=== PATIENT | male | born 1965 | race Caucasian/White ===

== ENCOUNTER 2017-08-11 18:08 | Emergency (ER) | payer BC ==
--- NOTE | 2017-08-11 19:45 | EDM.PDOC ---
ED HPI GENERAL MEDICAL PROBLEM - General Chief Complaint: General Stated Complaint: HIGH BP Time Seen by Provider: 08/11/17 18:25 Source of Information: Reports: Patient History Limitations: Reports: No Limitations - History of Present Illness INITIAL COMMENTS - FREE TEXT/NARRATIVE: Patient is a 51 year old man with high blood pressure who has had high blood pressure at home. He smoked a cigarette on the way to work and it was even higher at work at 173/120 and he came to the ED. He was worried, felt hot and dizzy. No chest pain or shortness or breath or other complaints. Onset: Today Onset Date: 08/11/17 Onset Time: 16:00 Duration: Improving Location: Reports: Generalized Quality: Reports: Other (No other symptoms.) Severity: Mild Improves with: Reports: Medication Worsens with: Reports: Other (Cigarettes.) Context: Denies: Other (History of hypertension and smoking.) Associated Symptoms: Reports: Other (Dizzy.) - Related Data Allergies Allergy/AdvReac Type Severity Reaction Status Date / Time No Known Allergies Allergy Verified 08/11/17 18:14 Home Meds: Home Meds Carvedilol [Carvedilol] 25 mg PO BID 08/11/17 [History] Lisinopril [Lisinopril] 10 mg PO DAILY 08/11/17 [History] Past Medical History Cardiovascular History: Reports: Automatic Implantable Cardioverter Defibrillators, Hypertension Social & Family History - Family History Family Medical History: Noncontributory - Tobacco Use Smoking Status *Q: Current Every Day Smoker Years of Tobacco use: 20 Packs/Tins Daily: 0.5 - Caffeine Use Caffeine Use: Reports: Tea - Alcohol Use Days Per Week of Alcohol Use: 2 Number of Drinks Per Day: 2 Total Drinks Per Week: 4 - Recreational Drug Use Recreational Drug Use: No ED ROS GENERAL - Review of Systems Review Of Systems: See Below Constitutional: Reports: No Symptoms HEENT: Reports: No Symptoms Respiratory: Reports: No Symptoms Cardiovascular: Reports: No Symptoms Endocrine: Reports: No Symptoms GI/Abdominal: Reports: No Symptoms : Reports: No Symptoms Musculoskeletal: Reports: No Symptoms Skin: Reports: No Symptoms Neurological: Reports: No Symptoms Psychiatric: Reports: No Symptoms Hematologic/Lymphatic: Reports: No Symptoms Immunologic: Reports: No Symptoms ED EXAM, GENERAL - Physical Exam Exam: See Below Exam Limited By: No Limitations General Appearance: Alert, WD/WN, No Apparent Distress Eye Exam: Bilateral Eye: EOMI, Normal Fundi, Normal Inspection, PERRL Ears: Normal External Exam, Normal Canal, Hearing Grossly Normal, Normal TMs Ear Exam: Bilateral Ear: Auricle Normal, Canal Normal, TM normal Nose: Normal Inspection, Normal Mucosa, No Blood Throat/Mouth: Normal Inspection, Normal Lips, Normal Teeth, Normal Gums, Normal Oropharynx, Normal Voice, No Airway Compromise Head: Atraumatic, Normocephalic Neck: Normal Inspection, Supple, Non-Tender, Full Range of Motion Respiratory/Chest: No Respiratory Distress, Lungs Clear, Normal Breath Sounds, No Accessory Muscle Use, Chest Non-Tender Cardiovascular: Normal Peripheral Pulses, Regular Rate, Rhythm, No Edema, No Gallop, No JVD, No Murmur, No Rub GI/Abdominal: Normal Bowel Sounds, Soft, Non-Tender, No Organomegaly, No Distention, No Abnormal Bruit, No Mass Back Exam: Normal Inspection Extremities: Normal Inspection, Normal Range of Motion, Non-Tender, Normal Capillary Refill, No Pedal Edema Neurological: Alert, Oriented, CN II-XII Intact, Normal Cognition, Normal Gait, Normal Reflexes, No Motor/Sensory Deficits Psychiatric: Normal Affect, Normal Mood Skin Exam: Warm, Dry, Intact, Normal Color, No Rash Lymphatic: No Adenopathy Course - Vital Signs Text/Narrative:: Patient's blood pressure dropped nicely just relaxing. His labs were normal. He will increase his Lisinopril to 20 mg po q day and continue Carvedilol at the same dose. He will see his PCP next week. Last Recorded V/S: Last Vital Signs Temp 36.6 C 08/11/17 18:16 Pulse 76 08/11/17 19:00 Resp 16 08/11/17 19:00 BP 130/94 H 08/11/17 19:00 Pulse Ox 95 08/11/17 19:00 - Orders/Labs/Meds Labs: Laboratory Tests 08/11/17 08/11/17 Range/Units 18:55 18:55 WBC 7.8 (4.5-12.0) X10-3/uL RBC 4.80 (4.30-5.75) x10(6)uL Hgb 15.7 H (11.5-15.5) g/dL Hct 45.6 (30.0-51.3) % MCV 95.0 (80-96) fL MCH 32.7 (27.7-33.6) pg MCHC 34.4 (32.2-35.4) g/dL RDW 11.1 L (11.5-15.5) % Plt Count 204 (125-369) X10(3)uL MPV 8.8 (7.4-10.4) fL Neut % (Auto) 71.5 (46-82) % Lymph % (Auto) 20.0 (13-37) % Morgan % (Auto) 7.2 (4-12) % Eos % (Auto) 1 (1.0-5.0) % Baso % (Auto) 0 (0-2) % Neut # (Auto) 5.5 (1.6-8.3) # Lymph # (Auto) 1.6 (0.6-5.0) # Morgan # (Auto) 0.6 (0.0-1.3) # Eos # (Auto) 0.1 (0.0-0.8) # Baso # (Auto) 0.0 (0.0-0.2) # Sodium 134 L (135-145) mmol/L Potassium 3.9 (3.5-5.3) mmol/L Chloride 99 L (100-110) mmol/L Carbon Dioxide 25 (23-29) mmol/L BUN 12 (5-20) mg/dL Creatinine 0.7 (0.6-1.3) mg/dL Est Cr Clr Drug Dosing 128.91 mL/min Estimated GFR (MDRD) > 60 (>60) BUN/Creatinine Ratio 17.1 (9-20) Glucose 129 H (80-116) mg/dL Calcium 9.2 (8.6-10.2) mg/dL Total Bilirubin 1.3 (0.1-1.3) mg/dL AST 26 (5-27) IU/L ALT 28 H (14-26) IU/L Alkaline Phosphatase 86 (56-112) IU/L Total Protein 7.9 (6.0-8.0) g/dL Albumin 4.3 (3.5-5.2) g/dL Globulin 3.6 g/dL Albumin/Globulin Ratio 1.2 Departure - Departure Time of Disposition: 19:52 Disposition: Home, Self-Care 01 Condition: Good Clinical Impression: Hypertension - Discharge Information Referrals: PCP,None [Primary Care Provider] -
== END 2017-08-11 20:08 | disposition home or self-care (01) ==
LOC: FB.ED 18:08
DX: I10 Essential (primary) hypertension (principal); F17.210 Nicotine dependence, cigarettes, uncomplicated
CPT/HCPCS: 36415; 80053; 85025; 99283

== ENCOUNTER 2020-03-02 15:05 | Observation (INO) | payer OTHER, SELFPAY ==
--- NOTE | 2020-03-02 15:11 | EDM.PDOC ---
ED HPI GENERAL MEDICAL PROBLEM - General Stated Complaint: SEIZURE Time Seen by Provider: 03/02/20 15:08 Source of Information: Reports: Patient History Limitations: Reports: Altered Mental Status - History of Present Illness INITIAL COMMENTS - FREE TEXT/NARRATIVE: 54 yo with a witnessed generalized tonic clinic seizure while at work. He was brought in by an ambulance. Lasted a couple of minutes,no tongue biting or incontinence of sphincters. He has a h/o HTN, but endorses no h/o seizures. He does drink some alcohol,unable to quantify,last time being yesterday. No fever reported. - Related Data Allergies Allergy/AdvReac Type Severity Reaction Status Date / Time No Known Allergies Allergy Verified 08/11/17 18:14 Home Meds: Home Meds Lisinopril 10 mg PO DAILY 08/11/17 [History] carvediloL [Carvedilol] 25 mg PO BID 08/11/17 [History] Past Medical History Cardiovascular History: Reports: Automatic Implantable Cardioverter Defibrillators, Hypertension Social & Family History - Family History Family Medical History: Noncontributory - Caffeine Use Caffeine Use: Reports: Tea ED ROS GENERAL - Review of Systems Review Of Systems: Comprehensive ROS is negative, except as noted in HPI. ED EXAM, NEURO - Physical Exam Exam: See Below Exam Limited By: Altered Mental Status General Appearance: Alert, Lethargic Nose: Normal Inspection, Normal Mucosa, No Blood Throat/Mouth: Normal Inspection, Normal Lips, Normal Teeth, Normal Gums, Normal Oropharynx, Normal Voice, No Airway Compromise Head Exam: Atraumatic, Normocephalic Neck: Normal Inspection Respiratory/Chest: No Respiratory Distress, Lungs Clear Cardiovascular: Normal Peripheral Pulses, No JVD, No Murmur Neurological: Alert, CN II-XII Intact. No: Oriented x 3 Extremities: Normal Inspection Psychiatric: Flat Affect Skin Exam: Warm, Cool, Pallor EKG INTERPRETATION Rhythm: NSR Course - Orders/Labs/Meds Orders: Active Orders 24 hr Category Date Time Status EKG Documentation Completion [RC] ASDIRECTED Care 03/02/20 15:07 Active Head wo Cont [CT] Stat Exams 03/02/20 15:07 Taken Sodium Chloride 0.9% [Normal Saline] 1,000 ml Med 03/02/20 15:15 Active IV ASDIRECTED Sodium Chloride 0.9% [Saline Flush] Med 03/02/20 15:07 Active 10 ml FLUSH ASDIRECTED PRN Peripheral IV Insertion Adult [OM.PC] Routine Oth 03/02/20 15:06 Ordered EKG 12 Lead [EK] Routine Ther 03/02/20 15:06 Ordered Medication Orders Sodium Chloride (Normal Saline) 1,000 mls @ 150 mls/hr IV ASDIRECTED ALEXANDRA Last Admin: 03/02/20 16:33 Dose: 150 mls/hr Sodium Chloride (Saline Flush) 10 ml FLUSH ASDIRECTED PRN PRN Reason: Keep Vein Open Last Admin: 03/02/20 16:33 Dose: 10 ml Labs: Laboratory Tests 03/02/20 03/02/20 03/02/20 Range/Units 15:18 15:18 15:18 WBC 5.5 (4.5-12.0) X10-3/uL RBC 4.42 (4.30-5.75) x10(6)uL Hgb 15.2 (13.5-17.8) g/dL Hct 44.5 (30.0-51.3) % MCV 100.5 H (80-96) fL MCH 34.5 H (27.7-33.6) pg MCHC 34.3 (32.2-35.4) g/dL RDW 12.4 (11.5-15.5) % Plt Count 151 (125-369) X10(3)uL MPV 8.5 (7.4-10.4) fL Neut % (Auto) 55.3 (46-82) % Lymph % (Auto) 29.2 (13-37) % Thayer % (Auto) 13.6 H (4-12) % Eos % (Auto) 1 (1.0-5.0) % Baso % (Auto) 1 (0-2) % Neut # (Auto) 3.1 (1.6-8.3) # Lymph # (Auto) 1.6 (0.6-5.0) # Thayer # (Auto) 0.7 (0.0-1.3) # Eos # (Auto) 0.0 (0.0-0.8) # Baso # (Auto) 0.1 (0.0-0.2) # Sodium 139 (135-145) mmol/L Potassium 4.3 (3.5-5.3) mmol/L Chloride 102 (100-110) mmol/L Carbon Dioxide 16 L (21-32) mmol/L BUN 6 L (7-18) mg/dL Creatinine 1.1 (0.70-1.30) mg/dL Est Cr Clr Drug Dosing TNP Estimated GFR (MDRD) > 60 (>60) BUN/Creatinine Ratio 5.5 L (9-20) Glucose 158 H (80-116) mg/dL Calcium 8.7 (8.6-10.2) mg/dL Troponin I 7.8 (4.0-60.3) pg/mL Urine Opiates Screen (NEGATIVE) Ur Oxycodone Screen (NEGATIVE) Ur Propoxyphene Screen (NEGATIVE) Ur Barbituates Screen (NEGATIVE) Ur Tricyclics Screen (NEGATIVE) Ur Phencyclidine Scrn (NEGATIVE) Ur Amphetamine Screen (NEGATIVE) Urine MDMA Screen (NEGATIVE) U Benzodiazepines Scrn (NEGATIVE) U Cocaine Metab Screen (NEGATIVE) U Marijuana (THC) Screen (NEGATIVE) Ethyl Alcohol (<0.03) % 03/02/20 03/02/20 Range/Units 15:18 16:42 WBC (4.5-12.0) X10-3/uL RBC (4.30-5.75) x10(6)uL Hgb (13.5-17.8) g/dL Hct (30.0-51.3) % MCV (80-96) fL MCH (27.7-33.6) pg MCHC (32.2-35.4) g/dL RDW (11.5-15.5) % Plt Count (125-369) X10(3)uL MPV (7.4-10.4) fL Neut % (Auto) (46-82) % Lymph % (Auto) (13-37) % Thayer % (Auto) (4-12) % Eos % (Auto) (1.0-5.0) % Baso % (Auto) (0-2) % Neut # (Auto) (1.6-8.3) # Lymph # (Auto) (0.6-5.0) # Thayer # (Auto) (0.0-1.3) # Eos # (Auto) (0.0-0.8) # Baso # (Auto) (0.0-0.2) # Sodium (135-145) mmol/L Potassium (3.5-5.3) mmol/L Chloride (100-110) mmol/L Carbon Dioxide (21-32) mmol/L BUN (7-18) mg/dL Creatinine (0.70-1.30) mg/dL Est Cr Clr Drug Dosing Estimated GFR (MDRD) (>60) BUN/Creatinine Ratio (9-20) Glucose (80-116) mg/dL Calcium (8.6-10.2) mg/dL Troponin I (4.0-60.3) pg/mL Urine Opiates Screen Negative (NEGATIVE) Ur Oxycodone Screen Negative (NEGATIVE) Ur Propoxyphene Screen Negative (NEGATIVE) Ur Barbituates Screen Negative (NEGATIVE) Ur Tricyclics Screen Negative (NEGATIVE) Ur Phencyclidine Scrn Negative (NEGATIVE) Ur Amphetamine Screen Negative (NEGATIVE) Urine MDMA Screen Negative (NEGATIVE) U Benzodiazepines Scrn Negative (NEGATIVE) U Cocaine Metab Screen Negative (NEGATIVE) U Marijuana (THC) Screen Negative (NEGATIVE) Ethyl Alcohol < 0.03 (<0.03) % Meds: Medications Generic Name Dose Route Start Last Admin Trade Name Freq PRN Reason Stop Dose Admin Sodium Chloride 1,000 mls @ 150 mls/hr 03/02/20 15:15 03/02/20 16:33 Normal Saline IV 150 mls/hr ASDIRECTED ALEXANDRA Administration Sodium Chloride 10 ml 03/02/20 15:07 03/02/20 16:33 Saline Flush FLUSH 10 ml ASDIRECTED PRN Administration Keep Vein Open Departure - Departure Time of Disposition: 17:14 Disposition: Refer to Observation Condition: Good Clinical Impression: Hypertension, Seizure - Discharge Information Sepsis Event Note - Focused Exam Date Exam was Performed: 03/02/20 Time Exam was Performed: 17:13 - Problem List & Annotations (1) Seizure SNOMED Code(s): 18840248 Code(s): R56.9 - UNSPECIFIED CONVULSIONS Status: Acute Current Visit: No (2) Hypertension SNOMED Code(s): 48963989 Code(s): I10 - ESSENTIAL (PRIMARY) HYPERTENSION Status: Acute Current Visit: No Qualifiers: Hypertension type: essential hypertension Qualified Code(s): I10 - Essential (primary) hypertension (3) ETOH abuse SNOMED Code(s): 33693050 Code(s): F10.10 - ALCOHOL ABUSE, UNCOMPLICATED Status: Acute Current Visit: Yes (4) Dehydration SNOMED Code(s): 96240964 Code(s): E86.0 - DEHYDRATION Status: Acute Current Visit: Yes - Problem List Review Problem List Initiated/Reviewed/Updated: Yes - My Orders Last 24 Hours: My Active Orders 03/02/20 15:06 Peripheral IV Insertion Adult [OM.PC] Routine EKG 12 Lead [EK] Routine 03/02/20 15:07 EKG Documentation Completion [RC] ASDIRECTED Head wo Cont [CT] Stat Sodium Chloride 0.9% [Saline Flush] 10 ml FLUSH ASDIRECTED PRN 03/02/20 15:15 Sodium Chloride 0.9% [Normal Saline] 1,000 ml IV ASDIRECTED - Assessment/Plan Last 24 Hours: My Active Orders 03/02/20 15:06 Peripheral IV Insertion Adult [OM.PC] Routine EKG 12 Lead [EK] Routine 03/02/20 15:07 EKG Documentation Completion [RC] ASDIRECTED Head wo Cont [CT] Stat Sodium Chloride 0.9% [Saline Flush] 10 ml FLUSH ASDIRECTED PRN 03/02/20 15:15 Sodium Chloride 0.9% [Normal Saline] 1,000 ml IV ASDIRECTED Plan: CT is negative. He is weak,and dizzy,slightly postictal. I will keep him for observation. CIWA. Fluids.Seizure precautions
[2020-03-02] MEDS ORDERED: Sodium Chloride 0.9% 1,000 ML IV SCH (15:15)
[2020-03-02] MEDS: Sodium Chloride 0.9% 10 ML Syringe FLUSH PRN (16:33)
[2020-03-02] MEDS ORDERED: LORazepam 2 MG/ML SDV IM PRN (17:15)
[2020-03-02] MEDS ORDERED: LORazepam 2 MG/ML SDV IV PRN (17:25)
[2020-03-02] MEDS ORDERED: Folic Acid 50 MG/10 ML MDV IV SCH (17:30)
[2020-03-02] MEDS: Sodium Chloride 0.9% 1,000 ML IV SCH (18:00)
--- NOTE | 2020-03-02 18:34 | PCM.HP.2 ---
H&P History of Present Illness - General Date of Service: 03/02/20 Admit Problem/Dx: Admission Diagnosis/Problem Admission Diagnosis/Problem Seizure Source of Information: Patient, EMS Notes Reviewed - History of Present Illness Initial Comments - Free Text/Narative: 54 yo with a witnessed generalized tonic clinic seizure while at work. He was brought in by an ambulance. Lasted a couple of minutes, bite his tongue but no incontinence of sphincters. He has a h/o HTN, but endorses no h/o seizures. He does drink some alcohol, 3-4 beers a night, last time being yesterday. No fever reported. No chest pain, shortness of breath, cough or sinus symptoms. Some body aches. 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 Does not use gloves but does not handle any chemicals. His pacemaker/ICD was turned off as it was only pacing 1%, then let the battery go , states that it was years ago. CT head shows some atrophy, but no masses. EKG shows Left bundle branch block. - Related Data Allergies/Adverse Reactions: Allergies Allergy/AdvReac Type Severity Reaction Status Date / Time No Known Allergies Allergy Verified 08/11/17 18:14 Home Medications: Home Meds Lisinopril 10 mg PO BID 08/11/17 [History] carvediloL [Carvedilol] 25 mg PO BID 08/11/17 [History] amLODIPine [Norvasc] 5 mg PO DAILY 03/02/20 [History] Past Medical History HEENT History: Reports: Cataract Cardiovascular History: Reports: Automatic Implantable Cardioverter Defibrillators, Hypertension Musculoskeletal History: Reports: Other (See Below) Other Musculoskeletal History: traumatic foot injury in childhood Neurological History: Reports: Other (See Below) Other Neuro History: gets dizzy when he is sick and when blood pressure is elevated. - Past Surgical History HEENT Surgical History: Reports: Cataract Surgery Other Neurological Surgeries/Procedures: no history of seizures or testing. Social & Family History - Family History Family Medical History: Noncontributory - Caffeine Use Caffeine Use: Reports: Tea H&P Review of Systems - Review of Systems: Review Of Systems: Comprehensive ROS is negative, except as noted in HPI. Exam - Exam Exam: See Below - Exam General: Alert, Oriented, Cooperative HEENT: PERRLA, Conjunctiva Clear, EOMI, Mucosa Moist & Arjay, Posterior Pharynx Clear, TMs Clear, Glasses Neck: Supple. No: Lymphadenopathy Lungs: Clear to Auscultation, Normal Respiratory Effort Cardiovascular: Regular Rate, Regular Rhythm GI/Abdominal Exam: Normal Bowel Sounds, Soft, Non-Tender, No Distention (Male) Exam: Deferred Rectal (Males) Exam: Deferred Extremities: No Pedal Edema Peripheral Pulses: 2+: Radial (L), Radial (R) Neurological: Strength Equal Bilateral, Normal Tone, Sensation Intact Neuro Extensive - Mental Status: Memory Loss-Recent Events - Patient Data Lab Results Last 24 hrs: Laboratory Results - last 24 hr 03/02/20 03/02/20 03/02/20 Range/Units 15:18 15:18 15:18 WBC 5.5 (4.5-12.0) X10-3/uL RBC 4.42 (4.30-5.75) x10(6)uL Hgb 15.2 (13.5-17.8) g/dL Hct 44.5 (30.0-51.3) % MCV 100.5 H (80-96) fL MCH 34.5 H (27.7-33.6) pg MCHC 34.3 (32.2-35.4) g/dL RDW 12.4 (11.5-15.5) % Plt Count 151 (125-369) X10(3)uL MPV 8.5 (7.4-10.4) fL Neut % (Auto) 55.3 (46-82) % Lymph % (Auto) 29.2 (13-37) % Ritchie % (Auto) 13.6 H (4-12) % Eos % (Auto) 1 (1.0-5.0) % Baso % (Auto) 1 (0-2) % Neut # (Auto) 3.1 (1.6-8.3) # Lymph # (Auto) 1.6 (0.6-5.0) # Ritchie # (Auto) 0.7 (0.0-1.3) # Eos # (Auto) 0.0 (0.0-0.8) # Baso # (Auto) 0.1 (0.0-0.2) # Sodium 139 (135-145) mmol/L Potassium 4.3 (3.5-5.3) mmol/L Chloride 102 (100-110) mmol/L Carbon Dioxide 16 L (21-32) mmol/L BUN 6 L (7-18) mg/dL Creatinine 1.1 (0.70-1.30) mg/dL Est Cr Clr Drug Dosing TNP Estimated GFR (MDRD) > 60 (>60) BUN/Creatinine Ratio 5.5 L (9-20) Glucose 158 H (80-116) mg/dL Calcium 8.7 (8.6-10.2) mg/dL Troponin I 7.8 (4.0-60.3) pg/mL Urine Opiates Screen (NEGATIVE) Ur Oxycodone Screen (NEGATIVE) Ur Propoxyphene Screen (NEGATIVE) Ur Barbituates Screen (NEGATIVE) Ur Tricyclics Screen (NEGATIVE) Ur Phencyclidine Scrn (NEGATIVE) Ur Amphetamine Screen (NEGATIVE) Urine MDMA Screen (NEGATIVE) U Benzodiazepines Scrn (NEGATIVE) U Cocaine Metab Screen (NEGATIVE) U Marijuana (THC) Screen (NEGATIVE) Ethyl Alcohol (<0.03) % 03/02/20 03/02/20 Range/Units 15:18 16:42 WBC (4.5-12.0) X10-3/uL RBC (4.30-5.75) x10(6)uL Hgb (13.5-17.8) g/dL Hct (30.0-51.3) % MCV (80-96) fL MCH (27.7-33.6) pg MCHC (32.2-35.4) g/dL RDW (11.5-15.5) % Plt Count (125-369) X10(3)uL MPV (7.4-10.4) fL Neut % (Auto) (46-82) % Lymph % (Auto) (13-37) % Ritchie % (Auto) (4-12) % Eos % (Auto) (1.0-5.0) % Baso % (Auto) (0-2) % Neut # (Auto) (1.6-8.3) # Lymph # (Auto) (0.6-5.0) # Ritchie # (Auto) (0.0-1.3) # Eos # (Auto) (0.0-0.8) # Baso # (Auto) (0.0-0.2) # Sodium (135-145) mmol/L Potassium (3.5-5.3) mmol/L Chloride (100-110) mmol/L Carbon Dioxide (21-32) mmol/L BUN (7-18) mg/dL Creatinine (0.70-1.30) mg/dL Est Cr Clr Drug Dosing Estimated GFR (MDRD) (>60) BUN/Creatinine Ratio (9-20) Glucose (80-116) mg/dL Calcium (8.6-10.2) mg/dL Troponin I (4.0-60.3) pg/mL Urine Opiates Screen Negative (NEGATIVE) Ur Oxycodone Screen Negative (NEGATIVE) Ur Propoxyphene Screen Negative (NEGATIVE) Ur Barbituates Screen Negative (NEGATIVE) Ur Tricyclics Screen Negative (NEGATIVE) Ur Phencyclidine Scrn Negative (NEGATIVE) Ur Amphetamine Screen Negative (NEGATIVE) Urine MDMA Screen Negative (NEGATIVE) U Benzodiazepines Scrn Negative (NEGATIVE) U Cocaine Metab Screen Negative (NEGATIVE) U Marijuana (THC) Screen Negative (NEGATIVE) Ethyl Alcohol < 0.03 (<0.03) % Result Diagrams: 03/02/20 15:18 03/02/20 15:18 - Problem List (1) Seizure SNOMED Code(s): 16983043 ICD Code: R56.9 - UNSPECIFIED CONVULSIONS Status: Acute Current Visit: Yes (2) Dehydration SNOMED Code(s): 11845256 ICD Code: E86.0 - DEHYDRATION Status: Acute Current Visit: Yes (3) ETOH abuse SNOMED Code(s): 12177665 ICD Code: F10.10 - ALCOHOL ABUSE, UNCOMPLICATED Status: Acute Current Visit: Yes (4) Hypertension SNOMED Code(s): 15241804 ICD Code: I10 - ESSENTIAL (PRIMARY) HYPERTENSION Status: Acute Current Visit: Yes Qualifiers: Hypertension type: essential hypertension Qualified Code(s): I10 - Essential (primary) hypertension Problem List Initiated/Reviewed/Updated: Yes Orders Last 24hrs: Active Orders 24 hr Category Date Time Status Patient Status [ADT] Routine ADT 03/02/20 17:15 Active Bedrest Bedside Commode [RC] ASDIRECTED Care 03/02/20 17:15 Active CIWAA Assessment [RC] ASDIRECTED Care 03/02/20 17:15 Active Cardiac Monitoring [RC] .As Directed Care 03/02/20 17:15 Active EKG Documentation Completion [RC] ASDIRECTED Care 03/02/20 15:07 Active Intake and Output [RC] QSHIFT Care 03/02/20 17:16 Active Oxygen Therapy [RC] PRN Care 03/02/20 17:15 Active VTE/DVT Education [RC] Per Unit Routine Care 03/02/20 17:15 Active Vital Signs [RC] Q8H Care 03/02/20 17:15 Active Regular Diet [DIET] Diet 03/02/20 Breakfast Ordered Head wo Cont [CT] Stat Exams 03/02/20 15:07 Taken CBC WITH AUTO DIFF [HEME] AM Lab 03/03/20 05:11 Ordered COMPREHENSIVE METABOLIC PN,CMP [CHEM] AM Lab 03/03/20 05:11 Ordered Folic Acid Med 03/02/20 17:30 Active 1 mg IV DAILY LORazepam [Ativan] Med 03/02/20 17:25 Active See Protocol IV Q1H PRN Sodium Chloride 0.9% [Normal Saline] 1,000 ml Med 03/02/20 15:15 Active IV ASDIRECTED Sodium Chloride 0.9% [Normal Saline] 1,000 ml Med 03/02/20 17:30 Active IV ASDIRECTED Sodium Chloride 0.9% [Saline Flush] Med 03/02/20 15:07 Active 10 ml FLUSH ASDIRECTED PRN Thiamine [Vitamin B-1] 100 mg Med 03/03/20 09:00 Active Sodium Chloride 0.9% [Normal Saline] 100 ml IV DAILY amLODIPine [Norvasc] Med 03/03/20 09:00 Ordered 5 mg PO DAILY carvediloL [Coreg] Med 03/02/20 21:00 Pending 25 mg PO BID lisinopriL [Prinivil] Med 03/02/20 21:00 Pending 10 mg PO BID Peripheral IV Insertion Adult [OM.PC] Routine Oth 03/02/20 15:06 Ordered Seizure Precautions [OM.PC] Routine Oth 03/02/20 17:15 Ordered Resuscitation Status Routine Resus Stat 03/02/20 17:15 Ordered EKG 12 Lead [EK] Routine Ther 03/02/20 15:06 Ordered Medication Orders Amlodipine Besylate (Norvasc) 5 mg PO DAILY ALEXANDRA Carvedilol (Coreg) 25 mg PO BID ALEXANDRA Folic Acid (Folic Acid) 1 mg IV DAILY ALEXANDRA Sodium Chloride (Normal Saline) 1,000 mls @ 150 mls/hr IV ASDIRECTED ALEXANDRA Last Infusion: 03/02/20 17:00 Dose: 999 mls/hr Admin: 03/02/20 16:33 Dose: 150 mls/hr Thiamine HCl 100 mg/ Sodium (Chloride) 101 mls @ 202 mls/hr IV DAILY ALEXANDRA Sodium Chloride (Normal Saline) 1,000 mls @ 125 mls/hr IV ASDIRECTED ALEXANDRA Lisinopril (Prinivil) 10 mg PO BID ALEXANDRA Lorazepam (Ativan) 0 mg IV Q1H PRN; Protocol PRN Reason: Withdrawal Symptoms Sodium Chloride (Saline Flush) 10 ml FLUSH ASDIRECTED PRN PRN Reason: Keep Vein Open Last Admin: 03/02/20 16:33 Dose: 10 ml Assessment/Plan Comment:: 1. Admit for ICU observation first episode of seizure, cerebral atrophy on CT head. 2. Seizure precautions, CIWAA protocol. 3. Continue home medications, will use patient's medications. 4. Cardiac monitoring. 5. Regular diet. 6. FULL CODE. - Mortality Measure Prognosis:: Good
[2020-03-02] MEDS: Carvedilol 25 MG Tab *PTOM PO SCH (20:48)
[2020-03-02] MEDS: Lisinopril 10 MG Tab *PTOM PO SCH (20:48)
[2020-03-03] MEDS: Sodium Chloride 0.9% 1,000 ML IV SCH (02:05)
[2020-03-03] MEDS: Carvedilol 25 MG Tab *PTOM PO SCH (08:44)
[2020-03-03] MEDS: Lisinopril 10 MG Tab *PTOM PO SCH (08:46)
[2020-03-03] MEDS ORDERED: amLODIPine 5 MG Tab *PTOM PO SCH (09:00)
[2020-03-03] MEDS ORDERED: Folic Acid 1 MG Tab PO SCH (09:00)
[2020-03-03] MEDS ORDERED: Thiamine 100 MG in Sodium Chloride 0.9% 100 ML IV SCH (09:00)
[2020-03-03] MEDS ORDERED: Lisinopril 10 MG Tab PO SCH (09:00)
[2020-03-03] MEDS ORDERED: Thiamine 100 MG Tab PO SCH (09:00)
[2020-03-03] MEDS: Sodium Chloride 0.9% 10 ML Syringe FLUSH PRN (10:09)
--- NOTE | 2020-03-03 14:26 | PCM.DCSUM1 ---
Discharge Summary - Hospital Course HPI Initial Comments: 54 yo with a witnessed generalized tonic clinic seizure while at work. He was brought in by an ambulance. Lasted a couple of minutes, bite his tongue but no incontinence of sphincters. He has a h/o HTN, but endorses no h/o seizures. He does drink some alcohol, 3-4 beers a night, last time being yesterday. No fever reported. No chest pain, shortness of breath, cough or sinus symptoms. Some body aches. 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 Does not use gloves but does not handle any chemicals. His pacemaker/ICD was turned off as it was only pacing 1%, then let the battery go , states that it was years ago. CT head shows some atrophy, but no masses. EKG shows Left bundle branch block. Diagnosis: Stroke: No - Discharge Data Discharge Date: 03/03/20 Discharge Disposition: Home, Self-Care 01 Condition: Good - Referral to Home Health Primary Care Physician: Cinthya Chaidez NP - Discharge Diagnosis/Problem(s) (1) Seizure SNOMED Code(s): 34088833 ICD Code: R56.9 - UNSPECIFIED CONVULSIONS Status: Acute Current Visit: Yes Problem Details: 1st episode (2) Dehydration SNOMED Code(s): 50745850 ICD Code: E86.0 - DEHYDRATION Status: Resolved Current Visit: Yes (3) ETOH abuse SNOMED Code(s): 81126597 ICD Code: F10.10 - ALCOHOL ABUSE, UNCOMPLICATED Status: Acute Current Visit: Yes (4) Hypertension SNOMED Code(s): 40291850 ICD Code: I10 - ESSENTIAL (PRIMARY) HYPERTENSION Status: Chronic Current Visit: Yes Qualifiers: Hypertension type: essential hypertension Qualified Code(s): I10 - Essential (primary) hypertension - Patient Summary/Data Hospital Course: Jomar was postictal in ER, was admitted for observation for 1st episode of seizure. His blood pressure was elevated, resumed his home medications and improved this morning after his morning medications. His CIWAA score was 2 at highest, and has not required any Ativan. No seizure during hospital stay. Will be discharged home, appt with Cinthya Chaidez for to make sure he is doing well. He will not need to start any antiepileptic medications at this time as it was first episode. - Patient Instructions Diet: Heart Healthy Diet Activity: As Tolerated Driving: Do Not Drive Showering/Bathing: May Shower Other/Special Instructions: Follow up with Cinthya Chaidez [facility] on March 05 at 2pm to make sure you are doing well and clear you for work. - Discharge Plan *PRESCRIPTION DRUG MONITORING PROGRAM REVIEWED*: Not Applicable *COPY OF PRESCRIPTION DRUG MONITORING REPORT IN PATIENT BLANCHE: Not Applicable Home Medications: Home Meds Lisinopril 10 mg PO BID 08/11/17 [History] carvediloL [Carvedilol] 25 mg PO BID 08/11/17 [History] amLODIPine [Norvasc] 5 mg PO DAILY 03/02/20 [History] Oxygen Therapy Mode: Room Air Patient Handouts: Alcohol Use Disorder, Smoking Tobacco Information, Adult, Cardiomyopathy, Adult, Fall Prevention in Hospitals, Adult, Seizure, Adult, Easy -to-Read, Venous Thromboembolism Prevention Forms: ED Department Discharge Referrals: Cinthya Chaidez, NITROGLYCERIN SUPERVISOR [Primary Care Provider] - - Discharge Summary/Plan Comment DC Time >30 min.: No - General Info Date of Service: 03/03/20 Admission Dx/Problem (Free Text: Some muscle aches but no seizure overnight, blood pressure controlled after morning medications. - Patient Data Vitals - Most Recent: Last Vital Signs Temp 98.7 F 03/03/20 12:45 Pulse 72 03/03/20 12:45 Resp 18 03/03/20 12:45 BP 145/87 H 03/03/20 12:45 Pulse Ox 98 03/03/20 12:45 Weight - Most Recent: 182 lb 6 oz I&O - Last 24 hours: Intake & Output 03/02/20 03/03/20 03/03/20 22:59 06:59 14:59 Intake Total 2216 Output Total 400 1 Balance 1816 -1 Lab Results - Last 24 hrs: Laboratory Results - last 24 hr 03/02/20 03/02/20 03/02/20 Range/Units 15:18 15:18 15:18 WBC 5.5 (4.5-12.0) X10-3/uL RBC 4.42 (4.30-5.75) x10(6)uL Hgb 15.2 (13.5-17.8) g/dL Hct 44.5 (30.0-51.3) % MCV 100.5 H (80-96) fL MCH 34.5 H (27.7-33.6) pg MCHC 34.3 (32.2-35.4) g/dL RDW 12.4 (11.5-15.5) % Plt Count 151 (125-369) X10(3)uL MPV 8.5 (7.4-10.4) fL Neut % (Auto) 55.3 (46-82) % Lymph % (Auto) 29.2 (13-37) % [place] % (Auto) 13.6 H (4-12) % Eos % (Auto) 1 (1.0-5.0) % Baso % (Auto) 1 (0-2) % Neut # (Auto) 3.1 (1.6-8.3) # Lymph # (Auto) 1.6 (0.6-5.0) # [place] # (Auto) 0.7 (0.0-1.3) # Eos # (Auto) 0.0 (0.0-0.8) # Baso # (Auto) 0.1 (0.0-0.2) # Sodium 139 (135-145) mmol/L Potassium 4.3 (3.5-5.3) mmol/L Chloride 102 (100-110) mmol/L Carbon Dioxide 16 L (21-32) mmol/L BUN 6 L (7-18) mg/dL Creatinine 1.1 (0.70-1.30) mg/dL Est Cr Clr Drug Dosing TNP Estimated GFR (MDRD) > 60 (>60) BUN/Creatinine Ratio 5.5 L (9-20) Glucose 158 H (80-116) mg/dL Calcium 8.7 (8.6-10.2) mg/dL Total Bilirubin (0.1-1.3) mg/dL AST (5-25) IU/L ALT (12-36) U/L Alkaline Phosphatase (56-112) IU/L Troponin I 7.8 (4.0-60.3) pg/mL Total Protein (6.0-8.0) g/dL Albumin (3.5-5.2) g/dL Globulin g/dL Albumin/Globulin Ratio Urine Opiates Screen (NEGATIVE) Ur Oxycodone Screen (NEGATIVE) Ur Propoxyphene Screen (NEGATIVE) Ur Barbituates Screen (NEGATIVE) Ur Tricyclics Screen (NEGATIVE) Ur Phencyclidine Scrn (NEGATIVE) Ur Amphetamine Screen (NEGATIVE) Urine MDMA Screen (NEGATIVE) U Benzodiazepines Scrn (NEGATIVE) U Cocaine Metab Screen (NEGATIVE) U Marijuana (THC) Screen (NEGATIVE) Ethyl Alcohol (<0.03) % 03/02/20 03/02/20 03/03/20 Range/Units 15:18 16:42 06:05 WBC 6.7 (4.5-12.0) X10-3/uL RBC 4.08 L (4.30-5.75) x10(6)uL Hgb 13.5 (13.5-17.8) g/dL Hct 40.5 (30.0-51.3) % MCV 99.2 H (80-96) fL MCH 33.0 (27.7-33.6) pg MCHC 33.3 (32.2-35.4) g/dL RDW 12.3 (11.5-15.5) % Plt Count 111 L (125-369) X10(3)uL MPV 8.7 (7.4-10.4) fL Neut % (Auto) 70.1 (46-82) % Lymph % (Auto) 15.5 (13-37) % [place] % (Auto) 12.6 H (4-12) % Eos % (Auto) 1 (1.0-5.0) % Baso % (Auto) 1 (0-2) % Neut # (Auto) 4.8 (1.6-8.3) # Lymph # (Auto) 1.0 (0.6-5.0) # [place] # (Auto) 0.8 (0.0-1.3) # Eos # (Auto) 0.0 (0.0-0.8) # Baso # (Auto) 0.1 (0.0-0.2) # Sodium (135-145) mmol/L Potassium (3.5-5.3) mmol/L Chloride (100-110) mmol/L Carbon Dioxide (21-32) mmol/L BUN (7-18) mg/dL Creatinine (0.70-1.30) mg/dL Est Cr Clr Drug Dosing Estimated GFR (MDRD) (>60) BUN/Creatinine Ratio (9-20) Glucose (80-116) mg/dL Calcium (8.6-10.2) mg/dL Total Bilirubin (0.1-1.3) mg/dL AST (5-25) IU/L ALT (12-36) U/L Alkaline Phosphatase (56-112) IU/L Troponin I (4.0-60.3) pg/mL Total Protein (6.0-8.0) g/dL Albumin (3.5-5.2) g/dL Globulin g/dL Albumin/Globulin Ratio Urine Opiates Screen Negative (NEGATIVE) Ur Oxycodone Screen Negative (NEGATIVE) Ur Propoxyphene Screen Negative (NEGATIVE) Ur Barbituates Screen Negative (NEGATIVE) Ur Tricyclics Screen Negative (NEGATIVE) Ur Phencyclidine Scrn Negative (NEGATIVE) Ur Amphetamine Screen Negative (NEGATIVE) Urine MDMA Screen Negative (NEGATIVE) U Benzodiazepines Scrn Negative (NEGATIVE) U Cocaine Metab Screen Negative (NEGATIVE) U Marijuana (THC) Screen Negative (NEGATIVE) Ethyl Alcohol < 0.03 (<0.03) % 03/03/20 Range/Units 06:05 WBC (4.5-12.0) X10-3/uL RBC (4.30-5.75) x10(6)uL Hgb (13.5-17.8) g/dL Hct (30.0-51.3) % MCV (80-96) fL MCH (27.7-33.6) pg MCHC (32.2-35.4) g/dL RDW (11.5-15.5) % Plt Count (125-369) X10(3)uL MPV (7.4-10.4) fL Neut % (Auto) (46-82) % Lymph % (Auto) (13-37) % [place] % (Auto) (4-12) % Eos % (Auto) (1.0-5.0) % Baso % (Auto) (0-2) % Neut # (Auto) (1.6-8.3) # Lymph # (Auto) (0.6-5.0) # [place] # (Auto) (0.0-1.3) # Eos # (Auto) (0.0-0.8) # Baso # (Auto) (0.0-0.2) # Sodium 139 (135-145) mmol/L Potassium 3.7 (3.5-5.3) mmol/L Chloride 106 (100-110) mmol/L Carbon Dioxide 24 (21-32) mmol/L BUN 7 (7-18) mg/dL Creatinine 0.8 (0.70-1.30) mg/dL Est Cr Clr Drug Dosing 108.99 Estimated GFR (MDRD) > 60 (>60) BUN/Creatinine Ratio 8.8 L (9-20) Glucose 89 (80-116) mg/dL Calcium 8.1 L (8.6-10.2) mg/dL Total Bilirubin 1.3 (0.1-1.3) mg/dL AST 60 H (5-25) IU/L ALT 98 H (12-36) U/L Alkaline Phosphatase 97 (56-112) IU/L Troponin I (4.0-60.3) pg/mL Total Protein 6.9 (6.0-8.0) g/dL Albumin 2.8 L (3.5-5.2) g/dL Globulin 4.1 g/dL Albumin/Globulin Ratio 0.7 Urine Opiates Screen (NEGATIVE) Ur Oxycodone Screen (NEGATIVE) Ur Propoxyphene Screen (NEGATIVE) Ur Barbituates Screen (NEGATIVE) Ur Tricyclics Screen (NEGATIVE) Ur Phencyclidine Scrn (NEGATIVE) Ur Amphetamine Screen (NEGATIVE) Urine MDMA Screen (NEGATIVE) U Benzodiazepines Scrn (NEGATIVE) U Cocaine Metab Screen (NEGATIVE) U Marijuana (THC) Screen (NEGATIVE) Ethyl Alcohol (<0.03) % Med Orders - Current: Current Medications Amlodipine Besylate (Norvasc) 5 mg PO DAILY [facility] Last Admin: 03/03/20 08:46 Dose: 5 mg Carvedilol (Coreg) 25 mg PO BID [facility] Last Admin: 03/03/20 08:44 Dose: 25 mg Folic Acid (Folic Acid) 1 mg PO DAILY [facility] Last Admin: 03/03/20 08:45 Dose: 1 mg Sodium Chloride (Normal Saline) 1,000 mls @ 150 mls/hr IV ASDIRECTED [facility] Last Infusion: 03/02/20 17:00 Dose: 999 mls/hr Sodium Chloride (Normal Saline) 1,000 mls @ 125 mls/hr IV ASDIRECTED [facility] Last Admin: 03/03/20 02:05 Dose: 125 mls/hr Lisinopril (Prinivil) 10 mg PO BID [facility] Last Admin: 03/03/20 08:46 Dose: 10 mg Lorazepam (Ativan) 0 mg IV Q1H PRN; Protocol PRN Reason: Withdrawal Symptoms Sodium Chloride (Saline Flush) 10 ml FLUSH ASDIRECTED PRN PRN Reason: Keep Vein Open Last Admin: 03/03/20 10:09 Dose: 10 ml Thiamine HCl (Vitamin B-1) 100 mg PO DAILY [facility] Last Admin: 03/03/20 08:47 Dose: 100 mg Discontinued Medications Folic Acid (Folic Acid) 1 mg IV DAILY [facility] Last Admin: 03/02/20 18:53 Dose: 1 mg Thiamine HCl 100 mg/ Sodium (Chloride) 101 mls @ 202 mls/hr IV DAILY [facility] Lisinopril (Prinivil) 10 mg PO DAILY [facility] Lorazepam (Ativan) 1 mg IM Q4H PRN PRN Reason: Withdrawal Symptoms - Exam General: Reports: Alert, Oriented, Cooperative, No Acute Distress Lungs: Reports: Clear to Auscultation, Normal Respiratory Effort Cardiovascular: Reports: Regular Rate, Regular Rhythm GI/Abdominal Exam: Normal Bowel Sounds, Soft, Non-Tender, No Distention Extremities: No Pedal Edema
== END 2020-03-03 15:00 | disposition home or self-care (01) ==
LOC: FB.ED 15:05 → FB.ICU 17:15
PROVIDERS: ADMIT Family Medicine; ATTEND Family Medicine
DX: R56.9 Unspecified convulsions (principal); E86.0 Dehydration; F10.10 Alcohol abuse, uncomplicated; I10 Essential (primary) hypertension; Z79.899 Other long term (current) drug therapy; Z95.0 Presence of cardiac pacemaker; Y90.0 Blood alcohol level of less than 20 mg/100 ml
CPT/HCPCS: 36415; 70450; 80048; 80053; 80305; 80307; 84484; 85025; 93005; 96360; 99285; A9270; J7030; 96361; 96374; 99282; G0378; J3490

== ENCOUNTER 2021-01-24 21:41 | Emergency (ER) | payer MEDICAID, OTHER ==
[2021-01-24] MEDS: levETIRAcetam 500 MG Tab PO ONE (22:12)
--- NOTE | 2021-01-24 22:19 | EDM.PDOC ---
ED HPI GENERAL MEDICAL PROBLEM - General Chief Complaint: General Stated Complaint: SEIZURES Time Seen by Provider: 01/24/21 21:45 Source of Information: Reports: Patient History Limitations: Reports: No Limitations - History of Present Illness INITIAL COMMENTS - FREE TEXT/NARRATIVE: Patient presented to the ED because of 2 seizure episodes which happened at 2099 and 2109. The seizure was described as generalized body jerking. No post ictal confusion or headache. According to the patient was drinking all day. Bilateral Upper Arm Pain Score (Numeric/FACES): 5 - Related Data Allergies Allergy/AdvReac Type Severity Reaction Status Date / Time No Known Allergies Allergy Verified 01/24/21 21:54 Home Meds: Home Meds Lisinopril 10 mg PO BID 08/11/17 [History] carvediloL [Carvedilol] 25 mg PO BID 08/11/17 [History] amLODIPine [Norvasc] 5 mg PO DAILY 03/02/20 [History] Past Medical History HEENT History: Reports: Cataract Cardiovascular History: Reports: Automatic Implantable Cardioverter Defi brillators, Cardiomyopathy, Hypertension, Pacemaker Respiratory History: Reports: Bronchitis, Recurrent, Other (See Below) Other Respiratory History: PT HAS A INHALER AND USES IT PRN VOICED BY PT. Gastrointestinal History: Reports: GERD Genitourinary History: Reports: Other (See Below) Other Genitourinary History: HARD TO START STREAM IN AM AT TIMES. Musculoskeletal History: Reports: Other (See Below) Other Musculoskeletal History: traumatic foot injury in childhood Neurological History: Reports: Seizure, Other (See Below) Other Neuro History: gets dizzy when he is sick and when blood pressure is elevated., small vessels in brain - Infectious Disease History Infectious Disease History: Reports: Chicken Pox, Measles, Mumps - Past Surgical History HEENT Surgical History: Reports: Cataract Surgery Cardiovascular Surgical History: Reports: Other (See Below) Other Cardiovascular Surgeries/Procedures: WIRE FOR PACEMAKER PLACEMENT Respiratory Surgical History: Reports: None GI Surgical History: Reports: Hernia, Inguinal, Other (See Below) Other GI Surgeries/Procedures: LEFT SIDE Male Surgical History: Reports: None Musculoskeletal Surgical History: Reports: Other (See Below) Other Musculoskeletal Surgeries/Procedures:: LEFT ANKLE HAS A SCREW IN IT X3 SURGERIES. Social & Family History - Family History Family Medical History: No Pertinent Family History - Tobacco Use Tobacco Use Status *Q: Current Every Day Tobacco User Years of Tobacco use: 40 Packs/Tins Daily: 0.5 - Caffeine Use Caffeine Use: Reports: Coffee, Soda - Alcohol Use Days Per Week of Alcohol Use: 7 Number of Drinks Per Day: 6 Total Drinks Per Week: 42 - Recreational Drug Use Recreational Drug Use: No ED ROS GENERAL - Review of Systems Review Of Systems: See Below Constitutional: Reports: No Symptoms HEENT: Reports: No Symptoms Respiratory: Reports: No Symptoms Cardiovascular: Reports: No Symptoms Endocrine: Reports: No Symptoms GI/Abdominal: Reports: No Symptoms : Reports: No Symptoms Musculoskeletal: Reports: No Symptoms Skin: Reports: No Symptoms Neurological: Reports: No Symptoms Psychiatric: Reports: No Symptoms Hematologic/Lymphatic: Reports: No Symptoms Immunologic: Reports: No Symptoms ED EXAM, GENERAL - Physical Exam Exam: See Below Exam Limited By: No Limitations General Appearance: Alert, No Apparent Distress Ears: Normal External Exam, Normal Canal Nose: Normal Inspection, Normal Mucosa, No Blood Throat/Mouth: Normal Inspection, Normal Teeth Head: Atraumatic, Normocephalic Neck: Normal Inspection, Supple, Non-Tender, Full Range of Motion Respiratory/Chest: No Respiratory Distress, Lungs Clear, Normal Breath Sounds, No Accessory Muscle Use, Chest Non-Tender Cardiovascular: Normal Peripheral Pulses, Regular Rate, Rhythm GI/Abdominal: Normal Bowel Sounds, Soft, Non-Tender, No Organomegaly Back Exam: Normal Inspection, Full Range of Motion Extremities: Normal Inspection, Normal Range of Motion Course - Vital Signs Text/Narrative:: I didn't have the chance to explain the lab result to the patient. because he went AMA due to [facility] question I asked if he was drinking alcohol or not. He said I don't wanna talk about it anymore, I just want to go home and left with his . Keppra 2000 mg po x1 Last Recorded V/S: Last Vital Signs Temp 37.1 C 01/24/21 21:41 Pulse 90 01/24/21 21:41 Resp 18 01/24/21 21:41 BP 130/94 H 01/24/21 21:41 Pulse Ox 96 01/24/21 21:41 - Orders/Labs/Meds Orders: Active Orders 24 hr Category Date Time Status LEVETIRACETAM (KEPPRA), S Stat Lab 01/24/21 22:05 Received Labs: Laboratory Tests 01/24/21 01/24/21 01/24/21 Range/Units 22:05 22:05 22:05 WBC 5.0 (3.2-10.1) x10-3/uL RBC 4.01 (3.90-5.90) x10(6)uL Hgb 14.4 (12.9-17.7) g/dL Hct 41.2 (38.3-50.1) % MCV 102.8 H (80.8-98.7) fL MCH 35.8 H (27.0-33.3) pg MCHC 34.8 (28.7-35.3) g/dL RDW 12.2 L (12.4-15.0) % Plt Count 188 (117-477) x10(3)uL MPV 8.6 (6.7-11.0) fL Neut % (Auto) 53.2 (40.3-71.8) % Lymph % (Auto) 34.3 (15.8-45.3) % [place] % (Auto) 10.6 (5.5-15.2) % Eos % (Auto) 1.4 (0.1-6.8) % Baso % (Auto) 0.5 (0.3-3.8) % Neut # (Auto) 2.7 (1.7-6.9) x10-3/uL Lymph # (Auto) 1.7 (0.5-4.5) x10-3/uL [place] # (Auto) 0.5 (0.0-1.2) x10-3/uL Eos # (Auto) 0.1 (0.0-0.6) x10-3/uL Baso # (Auto) 0.0 (0.0-0.3) x10-3/uL Sodium 141 (135-145) mmol/L Potassium 3.9 (3.5-5.3) mmol/L Chloride 104 (100-110) mmol/L Carbon Dioxide 23 (21-32) mmol/L BUN 9 (7-18) mg/dL Creatinine 0.9 (0.70-1.30) mg/dL Est Cr Clr Drug Dosing 95.76 mL/min Estimated GFR (MDRD) > 60 (>60) BUN/Creatinine Ratio 10.0 (9-20) Glucose 117 H (80-116) mg/dL Calcium 7.0 L (8.6-10.2) mg/dL Total Bilirubin 0.2 (0.1-1.3) mg/dL AST 42 H D (5-25) IU/L ALT 44 H D (12-36) U/L Alkaline Phosphatase 162 H (56-112) IU/L Total Protein 7.4 (6.0-8.0) g/dL Albumin 3.1 L (3.5-5.2) g/dL Globulin 4.3 g/dL Albumin/Globulin Ratio 0.7 Ethyl Alcohol 0.42 H* (<0.03) % Meds: Medications Discontinued Medications Generic Name Dose Route Start Last Admin Trade Name Freq PRN Reason Stop Dose Admin Levetiracetam 2,000 mg 01/24/21 21:56 01/24/21 22:12 Levetiracetam 500 Mg Tab PO 01/24/21 21:57 2,000 mg ONETIME ONE Administration Departure - Departure Time of Disposition: 20:30 Disposition: Against Medical Advice 07 Condition: Good Clinical Impression: Seizure, Alcohol intoxication - Discharge Information Instructions: Seizure, Adult, [id number] Referrals: Cinthya Chaidez NP [Primary Care Provider] - Forms: ED Department Discharge Additional Instructions: Please read discharge instructions on seizure Quit drinking alcohol Take your qabapentin as prescribed Follow up as needed Sepsis Event Note (ED) - Evaluation Sepsis Screening Result: No Definite Risk - Focused Exam Vital Signs: Vital Signs Temp Pulse Resp BP Pulse Ox 01/24/21 21:41 37.1 C 90 18 130/94 H 96 - My Orders Last 24 Hours: My Active Orders 01/24/21 22:05 LEVETIRACETAM (KEPPRA), S Stat - Assessment/Plan Last 24 Hours: My Active Orders 01/24/21 22:05 LEVETIRACETAM (KEPPRA), S Stat
== END 2021-01-24 22:20 | disposition left against medical advice (07) ==
LOC: FB.ED 21:41
DX: R56.9 Unspecified convulsions (principal); F10.129 Alcohol abuse with intoxication, unspecified; Y90.8 Blood alcohol level of 240 mg/100 ml or more; I10 Essential (primary) hypertension; Z72.0 Tobacco use; Z79.899 Other long term (current) drug therapy
CPT/HCPCS: 36415; 80053; 80177; 80307; 85025; 99284; A9270

== ENCOUNTER 2023-06-13 21:24 | Emergency (ER) | payer OTHER ==
[2023-06-13 22:38] LABS: APPEARANCE,URINE CLEAR (CLEAR); BACTERIA,URINE RARE (NS); BILIRUBIN,URINE NEGATIVE (NEGATIVE); COLOR,URINE YELLOW (YELLOW); GLUCOSE,URINE NORMAL (NORMAL); KETONES,URINE NEGATIVE (NEGATIVE); LEUKOCYTE ESTERASE,URINE NEGATIVE (NEGATIVE); NITRITE,URINE NEGATIVE (NEGATIVE); OCCULT BLOOD,URINE NEGATIVE (NEGATIVE); PROTEIN,URINE NEGATIVE (NEGATIVE); RBC,URINE 0-5 (0-5); SQUAMOUS EPITHELIAL CELLS,UR RARE (NS,R,O); UROBILINOGEN,URINE NORMAL (NEGATIVE); WBC,URINE 0-5 (0-5)
[2023-06-13 22:40] LABS: AMPHETAMINES SCREEN, URINE NEGATIVE (NEGATIVE); BARBITURATE SCREEN,URINE NEGATIVE (NEGATIVE); BENZODIAZEPINES SCREEN,URINE NEGATIVE (NEGATIVE); BUPRENORPHINE SCREEN,URINE NEGATIVE (NEGATIVE); METHADONE SCREEN, URINE NEGATIVE (NEGATIVE); METHAMPHETAMINE SCREEN, URINE NEGATIVE (NEGATIVE); OXYCODONE SCREEN,URINE NEGATIVE (NEGATIVE); PROPOXYPHENE SCREEN,URINE NEGATIVE (NEGATIVE); THC SCREEN,URINE NEGATIVE (NEGATIVE)
== END 2023-06-13 23:20 | disposition home or self-care (01) ==
LOC: FB.ED 21:24
DX: N32.0 Bladder-neck obstruction (principal); K21.9 Gastro-esophageal reflux disease without esophagitis; I10 Essential (primary) hypertension; F17.210 Nicotine dependence, cigarettes, uncomplicated; Z95.0 Presence of cardiac pacemaker
CPT/HCPCS: 80307; 81001; 99283; C1758

== ENCOUNTER 2023-06-17 15:36 | Emergency (ER) | payer OTHER ==
[2023-06-17] MEDS ORDERED: Promethazine 25 MG in Sodium Chloride 0.9% 50 ML IV ONE (15:46)
[2023-06-17] MEDS ORDERED: Lidocaine 2% HCl 6 ML Jel ONE ×3 (16:27→16:30)
[2023-06-17] MEDS ORDERED: Tamsulosin 0.4 MG Cap.ER PO ONE ×2 (17:43→17:59)
== END 2023-06-17 18:01 | disposition home or self-care (01) ==
LOC: FB.ED 15:36
DX: R30.0 Dysuria (principal); N40.0 Benign prostatic hyperplasia without lower urinary tract symptoms; F17.200 Nicotine dependence, unspecified, uncomplicated; Z95.0 Presence of cardiac pacemaker; Z79.899 Other long term (current) drug therapy
CPT/HCPCS: 51702; 99283; A9270-GY

== ENCOUNTER 2023-08-28 06:42 | Day surgery (SDC) | payer OTHER ==
[2023-08-28] MEDS ORDERED: Propofol 200 MG/20 ML SDV IV ONE (06:43)
[2023-08-28] MEDS ORDERED: Glycopyrrolate 0.2 MG/ML 5 ML MDV IV ONE (06:43)
[2023-08-28] MEDS ORDERED: Lactated Ringers 1,000 ML IV SCH (07:00)
[2023-08-28] MEDS ORDERED: Sodium Chloride 0.9% 10 ML Syringe FLUSH PRN (07:00)
[2023-08-28] MEDS ORDERED: Simethicone Drops 40 MG/0.6 ML 30 ML Bottle ONE (07:53)
== END 2023-08-28 09:28 | disposition home or self-care (01) ==
LOC: FB.SDS 06:42
PROVIDERS: ATTEND Surgery
DX: D12.0 Benign neoplasm of cecum (principal); D12.6 Benign neoplasm of colon, unspecified; K57.30 Diverticulosis of large intestine without perforation or abscess without bleeding; J45.909 Unspecified asthma, uncomplicated; I10 Essential (primary) hypertension; F10.10 Alcohol abuse, uncomplicated; F17.210 Nicotine dependence, cigarettes, uncomplicated; Z83.710 Family history of adenomatous and serrated polyps; Z79.899 Other long term (current) drug therapy; Z95.0 Presence of cardiac pacemaker
CPT/HCPCS: 00811; 88305; 88325; A9270-GY; J2704; J3490; J7120

== ENCOUNTER 2024-06-03 19:37 | Emergency (ER) | payer OTHER ==
[2024-06-03] MEDS ORDERED: Acetaminophen/oxyCODONE 325-5 MG Tab PO ONE (19:38)
[2024-06-03 20:03] LABS: BILIRUBIN,URINE NEGATIVE (NEGATIVE); GLUCOSE,URINE NORMAL (NORMAL); KETONES,URINE NEGATIVE (NEGATIVE); LEUKOCYTE ESTERASE,URINE NEGATIVE (NEGATIVE); NITRITE,URINE NEGATIVE (NEGATIVE); OCCULT BLOOD,URINE NEGATIVE (NEGATIVE); PROTEIN,URINE NEGATIVE (NEGATIVE); UROBILINOGEN,URINE NORMAL (NEGATIVE)
[2024-06-03 20:14] LABS: APPEARANCE,URINE CLEAR (CLEAR); BACTERIA,URINE FEW (NS); COLOR,URINE YELLOW (YELLOW); RBC,URINE NOT SEEN (0-5); SQUAMOUS EPITHELIAL CELLS,UR RARE (NS,R,O); WBC,URINE NOT SEEN (0-5)
[2024-06-03] MEDS: Lidocaine 2% HCl 6 ML Jel ONE (20:29)
[2024-06-03] MEDS: Phenazopyridine 95 MG Tab PO ONE (21:33)
[2024-06-04] MEDS ORDERED: Phenazopyridine 95 MG Tab PO SCH (09:00)
== END 2024-06-03 21:42 | disposition home or self-care (01) ==
LOC: FB.ED 19:37
DX: R33.9 Retention of urine, unspecified (principal); F17.210 Nicotine dependence, cigarettes, uncomplicated; Z79.899 Other long term (current) drug therapy
CPT/HCPCS: 51700; 81001; 99284; A9270

== ENCOUNTER 2024-06-04 03:56 | Emergency (ER) | payer OTHER | END 2024-06-04 04:45 | disposition home or self-care (01) | LOC: FB.ED 03:56 | DX: N40.1 Benign prostatic hyperplasia with lower urinary tract symptoms (principal); R33.8 Other retention of urine; I10 Essential (primary) hypertension; Z95.0 Presence of cardiac pacemaker; Z79.899 Other long term (current) drug therapy | CPT/HCPCS: 99283 ==

== ENCOUNTER 2024-06-04 19:14 | Emergency (ER) | payer OTHER | END 2024-06-04 19:54 | disposition home or self-care (01) | LOC: FB.ED 19:14 | DX: N40.0 Benign prostatic hyperplasia without lower urinary tract symptoms (principal); N32.0 Bladder-neck obstruction; I10 Essential (primary) hypertension; Z95.0 Presence of cardiac pacemaker; Z79.899 Other long term (current) drug therapy | CPT/HCPCS: 99283 ==

== ENCOUNTER 2024-07-12 18:22 | Emergency (ER) | payer OTHER ==
[2024-07-12] MEDS ORDERED: Sodium Chloride 0.9% 10 ML Syringe FLUSH PRN (18:43)
[2024-07-12 19:05] LABS: BASOPHILS PERCENT AUTO 0.6 % (0.3-3.8); EOSINOPHILS ABSOLUTE AUTO 0.4 x10-3/uL (0.0-0.6); EOSINOPHILS PERCENT AUTO 6.5 % (0.1-6.8); HEMATOCRIT 40.1 % (38.3-50.1); HEMOGLOBIN 13.7 g/dL (12.9-17.7); LYMPHOCYTES ABSOLUTE AUTO 1.7 x10-3/uL (0.5-4.5); LYMPHOCYTES PERCENT AUTO 31.7 % (15.8-45.3); MEAN CORPUSCULAR HEMOGLOBIN 34.2 pg (27.0-33.3); MEAN CORPUSCULAR HGB CONC 34.3 g/dL (28.7-35.3); MEAN CORPUSCULAR VOLUME 99.9 fL (80.8-98.7); MEAN PLATELET VOLUME 9.2 fL (6.7-11.0); MONOCYTES ABSOLUTE AUTO 0.8 x10-3/uL (0.0-1.2); MONOCYTES PERCENT AUTO 15.4 % (5.5-15.2); NEUTROPHILS ABSOLUTE AUTO 2.5 x10-3/uL (1.7-6.9); NEUTROPHILS PERCENT AUTO 45.8 % (40.3-71.8); PLATELET COUNT,PLT 126 x10(3)uL (117-477); RED BLOOD CELL COUNT 4.02 x10(6)uL (3.90-5.90); RED CELL DISTRIBUTION WIDTH 13.1 % (12.4-15.0); WHITE BLOOD CELL COUNT,WBC 5.5 x10-3/uL (3.2-10.1)
[2024-07-12 19:10] LABS: BLOOD UREA NITROGEN,BUN 7 mg/dL (7-18); CALCIUM 8.2 mg/dL (8.6-10.2); CARBON DIOXIDE,CO2 23 mmol/L (21-32); CHLORIDE,CL 103 mmol/L (100-110); CREATININE 0.7 mg/dL (0.70-1.30); ESTIMATED GFR 107 mL/min (>60); GLUCOSE RANDOM 113 mg/dL (80-116); POTASSIUM,K 3.6 mmol/L (3.5-5.3); SODIUM,NA 139 mmol/L (135-145)
[2024-07-12 19:15] LABS: ALANINE AMINOTRANSFERASE,ALT 52 U/L (12-36); ALBUMIN 3.5 g/dL (3.5-5.2); ALKALINE PHOSPHATASE 124 IU/L (56-112); AMYLASE 40 U/L (25-115); ASPARTATE AMNIOTRANSFERASE,AST 28 IU/L (5-25); BILIRUBIN TOTAL 0.5 mg/dL (0.1-1.3); PROTEIN TOTAL,TP 7.1 g/dL (6.0-8.0)
[2024-07-12] MEDS: Iopamidol 755 Mg/ML 100 ML Bottle IV ONE (19:18)
[2024-07-12 19:28] LABS: INR 0.98 (1.00-1.24); PROTHROMBIN TIME 10.2 sec (9.0-11.1); PTT,PARTIAL THROMBOPLSTIN TIME 25.8 SECONDS (24.4-33.2)
[2024-07-12] MEDS: Sodium Chloride 0.9% 1,000 ML IV SCH (19:53)
== END 2024-07-12 22:22 ==
LOC: FB.ED 18:22
DX: K92.2 Gastrointestinal hemorrhage, unspecified (principal); A04.72 Enterocolitis due to Clostridium difficile, not specified as recurrent; F17.210 Nicotine dependence, cigarettes, uncomplicated; K21.9 Gastro-esophageal reflux disease without esophagitis; Z95.810 Presence of automatic (implantable) cardiac defibrillator; I10 Essential (primary) hypertension; Z79.899 Other long term (current) drug therapy
CPT/HCPCS: 74177; 80053; 82150; 83690; 85025; 85610; 85730; 87507; 96360; 99285; J7030; Q9967

== ENCOUNTER 2024-07-15 20:21 | Emergency (ER) | payer OTHER ==
[2024-07-15 20:55] LABS: HEMATOCRIT 29.5 % (38.3-50.1); HEMOGLOBIN 10.3 g/dL (12.9-17.7); MEAN CORPUSCULAR HEMOGLOBIN 35.2 pg (27.0-33.3); MEAN CORPUSCULAR HGB CONC 34.9 g/dL (28.7-35.3); MEAN CORPUSCULAR VOLUME 100.9 fL (80.8-98.7); MEAN PLATELET VOLUME 8.7 fL (6.7-11.0); PLATELET COUNT,PLT 174 x10(3)uL (117-477); RED BLOOD CELL COUNT 2.92 x10(6)uL (3.90-5.90); RED CELL DISTRIBUTION WIDTH 13.1 % (12.4-15.0); WHITE BLOOD CELL COUNT,WBC 4.7 x10-3/uL (3.2-10.1)
[2024-07-15 20:58] LABS: CALCIUM 8.1 mg/dL (8.6-10.2); CARBON DIOXIDE,CO2 24 mmol/L (21-32); CHLORIDE,CL 103 mmol/L (100-110); CREATININE 0.8 mg/dL (0.70-1.30); EST CRCL DRUG DOSING (CG) 103.92 mL/min; ESTIMATED GFR 103 mL/min (>60); GLUCOSE RANDOM 107 mg/dL (80-116); POTASSIUM,K 3.6 mmol/L (3.5-5.3); SODIUM,NA 139 mmol/L (135-145)
[2024-07-15 21:00] LABS: BILIRUBIN,URINE NEGATIVE (NEGATIVE); GLUCOSE,URINE NORMAL (NORMAL); KETONES,URINE NEGATIVE (NEGATIVE); LEUKOCYTE ESTERASE,URINE NEGATIVE (NEGATIVE); NITRITE,URINE NEGATIVE (NEGATIVE); OCCULT BLOOD,URINE NEGATIVE (NEGATIVE); PROTEIN,URINE NEGATIVE (NEGATIVE); UROBILINOGEN,URINE NORMAL (NEGATIVE)
[2024-07-15 21:04] LABS: A/G RATIO 0.8; ALANINE AMINOTRANSFERASE,ALT 32 U/L (12-36); ALKALINE PHOSPHATASE 89 IU/L (56-112); ASPARTATE AMNIOTRANSFERASE,AST 20 IU/L (5-25); BILIRUBIN TOTAL 0.3 mg/dL (0.1-1.3); PROTEIN TOTAL,TP 6.6 g/dL (6.0-8.0)
[2024-07-15 21:08] LABS: BLOOD UREA NITROGEN,BUN < 5 mg/dL (7-18); BUN/CREATININE RATIO 6.3 (9-20)
[2024-07-15] MEDS: Sodium Chloride 0.9% 1,000 ML IV ONE (21:08)
[2024-07-15] MEDS: fentaNYL 100 MCG/2 ML SDV IVPUSH ONE (21:09)
[2024-07-15 21:10] LABS: APPEARANCE,URINE CLEAR (CLEAR); COLOR,URINE YELLOW (YELLOW); RBC,URINE NOT SEEN (0-5); SQUAMOUS EPITHELIAL CELLS,UR RARE (NS,R,O); WBC,URINE 0-5 (0-5)
[2024-07-15] MEDS: Iopamidol 755 Mg/ML 100 ML Bottle IV SCH (21:10)
[2024-07-15 22:21] LABS: EOSINOPHILS PERCENT MAN 5 % (0-5); LYMPHOCYTES PERCENT MAN 48 % (13-37); MONOCYTES PERCENT MAN 13 % (4-12); SEG NEUTROPHILS PERCENT MAN 34 % (46-82)
== END 2024-07-15 21:55 | disposition left against medical advice (07) ==
LOC: FB.ED 20:21
DX: R10.31 Right lower quadrant pain (principal); F17.210 Nicotine dependence, cigarettes, uncomplicated; Z79.899 Other long term (current) drug therapy
CPT/HCPCS: 36415; 74177; 80053; 81001; 83690; 85025; 96361; 96374; 99284; J3010; J7030; Q9967

== ENCOUNTER 2024-12-22 10:07 | Emergency (ER) | payer OTHER ==
[2024-12-22] MEDS ORDERED: Sodium Chloride 0.9% 10 ML Syringe FLUSH PRN (10:27)
[2024-12-22 10:50] LABS: EOSINOPHILS ABSOLUTE AUTO 0.1 x10-3/uL (0.0-0.6); HEMATOCRIT 40.2 % (38.3-50.1); HEMOGLOBIN 14.4 g/dL (12.9-17.7); LYMPHOCYTES ABSOLUTE AUTO 2.2 x10-3/uL (0.5-4.5); MEAN PLATELET VOLUME 8.1 fL (6.7-11.0); MONOCYTES ABSOLUTE AUTO 0.5 x10-3/uL (0.0-1.2); NEUTROPHILS ABSOLUTE AUTO 1.7 x10-3/uL (1.7-6.9); RED BLOOD CELL COUNT 4.17 x10(6)uL (3.90-5.90); WHITE BLOOD CELL COUNT,WBC 4.6 x10-3/uL (3.2-10.1)
[2024-12-22 10:52] LABS: BLOOD UREA NITROGEN,BUN 7 mg/dL (7-18); BUN/CREATININE RATIO 8.8 (9-20); CARBON DIOXIDE,CO2 26 mmol/L (21-32); CHLORIDE,CL 99 mmol/L (100-110); CREATININE 0.8 mg/dL (0.70-1.30); ESTIMATED GFR 103 mL/min (>60); GLUCOSE RANDOM 107 mg/dL (80-116); POTASSIUM,K 3.9 mmol/L (3.5-5.3); SODIUM,NA 137 mmol/L (135-145)
[2024-12-22 10:55] LABS: INR 0.95 (1.00-1.24); PROTHROMBIN TIME 9.9 sec (9.0-11.1)
[2024-12-22 10:57] LABS: BASOPHILS PERCENT AUTO 0.7 % (0.3-3.8); EOSINOPHILS PERCENT AUTO 2.5 % (0.1-6.8); LYMPHOCYTES PERCENT AUTO 48.2 % (15.8-45.3); MEAN CORPUSCULAR HEMOGLOBIN 34.4 pg (27.0-33.3); MEAN CORPUSCULAR HGB CONC 35.7 g/dL (28.7-35.3); MEAN CORPUSCULAR VOLUME 96.3 fL (80.8-98.7); MONOCYTES PERCENT AUTO 10.7 % (5.5-15.2); NEUTROPHILS PERCENT AUTO 37.9 % (40.3-71.8); PLATELET COUNT,PLT 214 x10(3)uL (117-477); RED CELL DISTRIBUTION WIDTH 12.8 % (12.4-15.0)
[2024-12-22 10:58] LABS: A/G RATIO 0.8; ALANINE AMINOTRANSFERASE,ALT 25 U/L (12-36); ALBUMIN 3.1 g/dL (3.5-5.2); ALKALINE PHOSPHATASE 138 IU/L (56-112); ASPARTATE AMNIOTRANSFERASE,AST 25 IU/L (5-25); BILIRUBIN TOTAL 0.4 mg/dL (0.1-1.3); PROTEIN TOTAL,TP 7.1 g/dL (6.0-8.0)
[2024-12-22] MEDS: Iopamidol 755 Mg/ML 100 ML Bottle IV SCH (12:03)
== END 2024-12-22 12:09 | disposition left against medical advice (07) ==
LOC: FB.ED 10:07
DX: K92.2 Gastrointestinal hemorrhage, unspecified (principal); J01.10 Acute frontal sinusitis, unspecified; F17.210 Nicotine dependence, cigarettes, uncomplicated; Z79.899 Other long term (current) drug therapy
CPT/HCPCS: 70450; 74177; 80053; 85025; 85610; 86140; 99284; Q9967

== ENCOUNTER 2025-08-11 00:59 | Emergency (ER) | payer OTHER ==
[2025-08-11] MEDS: Sodium Chloride 0.9% 10 ML Syringe FLUSH PRN (01:35)
[2025-08-11 01:52] LABS: BLOOD UREA NITROGEN,BUN 8 mg/dL (7-18); CARBON DIOXIDE,CO2 25 mmol/L (21-32); CHLORIDE,CL 103 mmol/L (100-110); CREATININE 0.6 mg/dL (0.70-1.30); EST CRCL DRUG DOSING (CG) 136.88 mL/min; ESTIMATED GFR 111 mL/min (>60); GLUCOSE RANDOM 128 mg/dL (80-116); POTASSIUM,K 3.6 mmol/L (3.5-5.3); SODIUM,NA 136 mmol/L (135-145)
[2025-08-11 01:58] LABS: A/G RATIO 0.6; ALANINE AMINOTRANSFERASE,ALT 34 U/L (12-36); ASPARTATE AMNIOTRANSFERASE,AST 47 IU/L (5-25); BILIRUBIN TOTAL 0.5 mg/dL (0.1-1.3); PROTEIN TOTAL,TP 6.1 g/dL (6.0-8.0)
[2025-08-11 02:04] LABS: BASOPHILS ABSOLUTE AUTO 0.0 x10-3/uL (0.0-0.3); BASOPHILS PERCENT AUTO 0.4 % (0.3-3.8); EOSINOPHILS ABSOLUTE AUTO 0.0 x10-3/uL (0.0-0.6); EOSINOPHILS PERCENT AUTO 0.7 % (0.1-6.8); LYMPHOCYTES ABSOLUTE AUTO 2.2 x10-3/uL (0.5-4.5); LYMPHOCYTES PERCENT AUTO 33.9 % (15.8-45.3); MEAN PLATELET VOLUME 8.1 fL (6.7-11.0); MONOCYTES ABSOLUTE AUTO 0.9 x10-3/uL (0.0-1.2); MONOCYTES PERCENT AUTO 13.2 % (5.5-15.2); NEUTROPHILS ABSOLUTE AUTO 3.3 x10-3/uL (1.7-6.9); NEUTROPHILS PERCENT AUTO 51.8 % (40.3-71.8); PLATELET COUNT,PLT 200 x10(3)uL (117-477); RED BLOOD CELL COUNT 3.76 x10(6)uL (3.90-5.90); RED CELL DISTRIBUTION WIDTH 13.4 % (12.4-15.0); WHITE BLOOD CELL COUNT,WBC 6.4 x10-3/uL (3.2-10.1)
[2025-08-11 02:19] LABS: ETHANOL BLOOD MEDICAL 0.24 % (<0.03)
[2025-08-11 02:30] LABS: APPEARANCE,URINE CLEAR (CLEAR); GLUCOSE,URINE NORMAL (NORMAL); OCCULT BLOOD,URINE NEGATIVE (NEGATIVE)
[2025-08-11] MEDS: Ketorolac 30 MG/ML SDV IVPUSH ONE (02:36)
== END 2025-08-11 04:30 | disposition home or self-care (01) ==
LOC: FB.ED 00:59
DX: R10.31 Right lower quadrant pain (principal); F10.129 Alcohol abuse with intoxication, unspecified; K21.9 Gastro-esophageal reflux disease without esophagitis; F17.200 Nicotine dependence, unspecified, uncomplicated; Z95.0 Presence of cardiac pacemaker; Y90.9 Presence of alcohol in blood, level not specified
CPT/HCPCS: 74176; 80053; 80307; 81003; 83690; 83735; 85025; 86140; 96374; 99284; J1885

== ENCOUNTER 2025-08-28 14:14 | Emergency (ER) | payer OTHER ==
[2025-08-28] MEDS ORDERED: Sodium Chloride 0.9% 10 ML Syringe FLUSH PRN (14:21)
[2025-08-28] MEDS: Thiamine 200 MG/2 ML MDV IVPUSH ONE (14:46)
[2025-08-28 14:58] LABS: BASOPHILS ABSOLUTE AUTO 0.0 x10-3/uL (0.0-0.3); BASOPHILS PERCENT AUTO 0.9 % (0.3-3.8); EOSINOPHILS ABSOLUTE AUTO 0.0 x10-3/uL (0.0-0.6); EOSINOPHILS PERCENT AUTO 0.4 % (0.1-6.8); LYMPHOCYTES ABSOLUTE AUTO 2.3 x10-3/uL (0.5-4.5); LYMPHOCYTES PERCENT AUTO 42.5 % (15.8-45.3); MEAN PLATELET VOLUME 7.8 fL (6.7-11.0); MONOCYTES ABSOLUTE AUTO 0.7 x10-3/uL (0.0-1.2); MONOCYTES PERCENT AUTO 13.2 % (5.5-15.2); NEUTROPHILS ABSOLUTE AUTO 2.4 x10-3/uL (1.7-6.9); NEUTROPHILS PERCENT AUTO 43.0 % (40.3-71.8); PLATELET COUNT,PLT 306 x10(3)uL (117-477); RED BLOOD CELL COUNT 4.09 x10(6)uL (3.90-5.90); RED CELL DISTRIBUTION WIDTH 14.4 % (12.4-15.0); WHITE BLOOD CELL COUNT,WBC 5.5 x10-3/uL (3.2-10.1)
[2025-08-28 15:04] LABS: BLOOD UREA NITROGEN,BUN 9 mg/dL (7-18); CARBON DIOXIDE,CO2 25 mmol/L (21-32); CHLORIDE,CL 103 mmol/L (100-110); CREATININE 0.6 mg/dL (0.70-1.30); ESTIMATED GFR 111 mL/min (>60); GLUCOSE RANDOM 93 mg/dL (80-116); POTASSIUM,K 3.4 mmol/L (3.5-5.3); SODIUM,NA 142 mmol/L (135-145)
[2025-08-28 15:14] LABS: ETHANOL BLOOD MEDICAL 0.33 % (<0.03)
[2025-08-28 15:15] LABS: A/G RATIO 0.6; ALANINE AMINOTRANSFERASE,ALT 20 U/L (12-36); ASPARTATE AMNIOTRANSFERASE,AST 26 IU/L (5-25); BILIRUBIN TOTAL 0.3 mg/dL (0.1-1.3); PROTEIN TOTAL,TP 6.9 g/dL (6.0-8.0)
[2025-08-28] MEDS: Potassium Chloride 20 MEQ Tab.ER PO ONE (15:15)
== END 2025-08-28 15:35 | disposition home or self-care (01) ==
LOC: FB.ED 14:14
DX: F10.129 Alcohol abuse with intoxication, unspecified (principal); E87.6 Hypokalemia; K21.9 Gastro-esophageal reflux disease without esophagitis; Z95.0 Presence of cardiac pacemaker; Y90.9 Presence of alcohol in blood, level not specified
CPT/HCPCS: 80053; 80307; 83690; 85025; 96361; 96374; 99284; A9270; J3411; J7030